=== PATIENT | male | born 1990 | race Caucasian/White ===

== ENCOUNTER 2017-06-06 18:44 | Emergency (ER) | payer SELFPAY ==
[~2017-06-06] VITALS: Ht 185.4 cm; Wt 106.6 kg
[~2017-06-06 18:44] MED LIST: IBUPROFEN400 MG PO; LISINOPRIL20 MG PO; PEPTO-BISMOL262 M1 PO
[2017-06-06] MEDS ORDERED: CEPHALEXIN500 MG PO (19:15)
[2017-06-06] MEDS ORDERED: ACETAMINOPHEN-1 EAC1 PO (19:15)
== END 2017-06-06 19:28 | disposition home or self-care (01) ==
LOC: ED 18:44
DX: K08.89 Other specified disorders of teeth and supporting structures (principal); I10 Essential (primary) hypertension; Z79.899 Other long term (current) drug therapy
CPT/HCPCS: 99283